=== PATIENT | female | born 1955 ===

== ENCOUNTER 2020-04-09 06:31 | Day surgery (SDC) | payer OTHER ==
[~2020-04-09 06:31] MED LIST: ARIMIDEX
[2020-04-09] MEDS ORDERED: PERCOCET 5-3251 EACH PO (11:13)
== END 2020-04-09 13:15 | disposition home or self-care (01) ==
LOC: CIR.AMB 06:31
PROVIDERS: ATTEND Obstetrics & Gynecology Gynecology
DX: N83.292 Other ovarian cyst, left side (principal); N83.291 Other ovarian cyst, right side; Z15.01 Genetic susceptibility to malignant neoplasm of breast; Z20.828 Contact with and (suspected) exposure to other viral communicable diseases